=== PATIENT | male | born 1930 | race Caucasian/White ===

== ENCOUNTER → 2017-07-16 | Day surgery (SDC) | payer MEDICARE ==
--- NOTE | 2017-07-12 11:52 | MH ---
cc: Albert Rodrigez MD DATE OF ADMISSION: 07/16/2017 ADMISSION DIAGNOSIS: Cataract, left eye. HISTORY OF PRESENT ILLNESS: This 86-year-old white male is coming through [facility] for the purpose of a lens extraction of the left eye with intraocular lens implant under local anesthesia. He has noticed decreasing visual acuity interfering with his daily activities and elected to have the above procedure. His best corrected visual acuity in room light is 20/50+2 in the right eye and 20/70 -1 in the left. PAST MEDICAL HISTORY: The patient has a history of rheumatic fever, hypertension and cholesterol problems. PAST SURGICAL HISTORY: Includes appendectomy and hemorrhoidectomy, as well as a possible skin cancer removed from his right leg. DAILY MEDICATIONS: Include: CoQ10, atorvastatin, lisinopril, 81 mg of aspirin, multivitamins, calcium plus D, and the AREDS 2 vitamins for macular degeneration. ALLERGIES: HE STATES HE IS ALLERGIC "TO XARELTO" WHICH CAUSED INTERNAL BLEEDING. SOCIAL HISTORY: The patient does not smoke and has 1 alcoholic beverage a day. FAMILY HISTORY: Positive with a father who had retinitis pigmentosa and a cousin who has wet macular degeneration. REVIEW OF SYSTEMS: HEAD: Patient denies severe headaches, dizziness or recent head injury. EARS: Patient denies hearing loss, ear pain, discharge or ringing in the ears. NOSE: Patient denies nasal discharge, obstruction or frequent colds. MOUTH AND THROAT: Patient denies soreness of the mouth or tongue, bleeding gums, trouble swallowing, changes in voice or sore throat. NECK: Patient denies neck pain or swelling, limitation of neck movement or neck injury. CARDIOPULMONARY SYSTEM: Patient denies shortness of breath, orthopnea, chronic cough, sputum production, hemoptysis, chest pain, wheezing, palpitations or light-headedness. GI SYSTEM: Patient denies poor appetite, nausea, vomiting, abdominal pain, ulcers, hemorrhoids or change in bowel habits. SYSTEM: The patient denies urinary frequency, dysuria, change in urine color. NERVOUS SYSTEM: Patient denies convulsions, vertigo, stroke, numbness or weakness. PHYSICAL EXAMINATION: VITAL SIGNS: Blood pressure 128/76, pulse 48, respirations 20. HEENT: Head is normocephalic, atraumatic. Nose without rhinorrhea. Throat: Clear. NECK: Supple. CHEST: Clear. HEART: Regular rhythm. ABDOMEN: Without tenderness. EXTREMITIES: Without edema. NEUROLOGIC: Within normal limits. MENTAL STATUS: Within normal limits. EYE EXAM: Patient's best corrected visual acuity in room light is 20/50+2 in the right eye and 20/70 -1 in the left. Visual ceballos are full to confrontation testing. Extraocular muscle exam reveals full versions with orthophoria in the distance and exophoria at near. Pupils are 3 mm, equal, round, reactive to light, without afferent defect. Anterior segment examination reveals nuclear sclerotic anterior and posterior cortical cataract changes bilaterally. Intraocular pressure is 23 in the right eye and 21 in the left by applanation tonometry. Dilated fundus exam revealed sharp disks with cup-to-disk ratio of 0.4 bilaterally. There are retinal pigment epithelial changes in the macula of each eye. A posterior vitreous detachment is present bilaterally. Cobblestone peripheral retinal degeneration is noted inferiorly greater than superiorly in both eyes. A potential acuity meter reading revealed potential acuity of 20/25 -2 in the right eye and 20/30+2 in the left. IMPRESSION: 1. Bilateral cataracts. 2. Posterior vitreous detachment, both eyes. 3. Macular degeneration, both eyes. 4. Glaucoma suspect low risk, both eyes. PLAN: Lens extraction of the left eye with intraocular lens implant under local anesthesia through [facility]. The patient has been cleared medically. He has been counseled as to the risks, benefits and alternatives and elected to proceed. I feel that cataract surgery will improve the quality of life and activities of daily living in this patient. MD RADHA Bales/SAW , 07:50 AM , 08:19 AM
[~2017-07-16] VITALS: Ht 175.3 cm; Wt 86.5 kg
[~2017-07-16] MED LIST: ACETYLCHOLINE CHL OPHT SOLN 1:100 2 ML VIAL ONE; ALEN1TAB48 PO; ASCO500T PO; ASPI81TA81 PO; ATOR40TA16 PO; CALCTAB19 PO; CHLORHEXIDINE GLUCONATE 2 % 1 PACK (2 CLOTHS) TOPICAL PRN; EPINEPHrine HCL PF/SF (1:1000) 1 MG/ML AMP I-OCULAR ONE; HYALURONIDASE/LIDOCAINE/BUPIVACAINE 5 ML SYR LEFT EYE ONE; INSULIN HUMAN REGULAR 1,000 UNITS/10 ML VIAL SQ PRN; LACTATED RINGER'S 1000 ML IV PRN; LISI2.5T3 PO; LUTE20CA PO; METOPROLOL TARTRATE 25 MG TAB PO PRN; MULTTAB67 PO; PANT40TA3 PO; PILOCARPINE HCL 2% OPHT SOLN 15 ML BTL ONE; POVIDONE IODINE 5% (ANTISEPSIS KIT) 4 APPLICATIONS EACH NARE PRN; PROPARACAINE HCL 0.5% OPHT SOLN 15 ML BTL LEFT EYE ONE; PROPOFOL 200 MG/20 ML AMP ONE; SODIUM CHLORID 0.9% 500 ML IV PRN; TOBRAMYCIN/DEXAMETHASONE OPTH OINT 3.5 GM TUBE ONE; VISCOAT OPHT IRRIG SOLN 0.75 ML SYRINGE ONE; ZEAX5POW PO; acetaZOLAMIDE SEQUELS 500 MG SUSTAINED RELEASE CAP ONE
[2017-07-16] MEDS: DICLOFENAC SOD 0.1% OPHT SOLN 2.5 ML BTL LEFT EYE SCH ×4 (07:45→07:54)
[2017-07-16] MEDS: TROPICAMIDE 1% OPHT SOLN 15 ML BTL LEFT EYE SCH ×4 (07:45→07:54)
[2017-07-16] MEDS: PHENYLEPHRINE HCL 2.5% OPTH SOLN 2 ML BTL LEFT EYE SCH ×4 (07:45→07:54)
[2017-07-16] MEDS: GATIFLOXACIN 0.5% OPHT SOLN 2.5 ML BTL LEFT EYE SCH ×4 (07:45→07:54)
[2017-07-16] MEDS: CYCLOPENTOLATE HCL 1% OPHT SOLN 2 ML BTL LEFT EYE SCH ×4 (07:45→07:54)
[2017-07-16 07:46] VITALS: PULSE 82
[2017-07-16 08:42] VITALS: PULSE 74
[2017-07-16 10:12] VITALS: TEMP 98.4
[2017-07-16 10:40] VITALS: BP 137/66; PULSE 66; RESP 16; O2SAT 100
--- NOTE | 2017-07-16 11:21 | MP ---
cc: Albert Rodrigez MD DATE OF OPERATION: 07/16/2017 PREOPERATIVE DIAGNOSIS: Cataract left eye. POSTOPERATIVE DIAGNOSIS: Cataract left eye. OPERATION: Extracapsular cataract extraction with posterior chamber intraocular lens implant by phacoemulsification, left eye. SURGEON: Albert Rodrigez M.D. ANESTHESIA: Local. COMPLICATIONS: None. INDICATIONS: See history and physical previously dictated. OPERATIVE PROCEDURE: The patient had adequate retrobulbar and eyelid blocks administered in the holding area and was brought to the operating room. The left eye was prepped and draped in the usual sterile ophthalmic manner. A lid speculum was inserted in the left eye. A 4-0 silk bridle suture was placed through the conjunctiva near the superior rectus muscle and it was tagged to the drape. A fornix-based conjunctival flap was prepared spanning approximately 5 mm in width. Hemostasis was obtained with wet-field cautery. A 3.5 mm groove was made 1 mm from the limbus and dissected up to the limbus in the form of a scleral pocket incision. A stab incision was then made at the 2 o'clock position. Viscoelastic was injected into the anterior chamber. The anterior chamber was entered with a 2.75 mm keratome through the scleral pocket incision. A 360 degree continuous curvilinear capsulorrhexis was then performed. Hydrodissection was utilized to divide the nucleus into inner and outer components and to separate the cortex from the capsule. Phacoemulsification was then utilized to remove the nucleus. The outer nuclear layer was removed with irrigation and aspiration and short bursts of ultrasound as necessary. The cortex was removed with the irrigation/aspiration handpiece. The posterior capsule was polished with the capsule polisher. Viscoelastic was injected into the capsular bag. The intraocular lens was inspected and found to be in good condition. The lens utilized was a Doni, model number SA60AT with a power of +16 diopters. The lens was inserted into the capsular bag. The viscoelastic in the anterior chamber was then removed with the irrigation-aspiration handpiece. Viscoelastic was also removed from beneath the intraocular lens. The anterior chamber was filled with Miochol-E through the stab incision and pressurized. The wound was checked for leaks at this pressure and normalized pressure and there were none. The 4-0 bridle suture was removed. The conjunctival flap was brought down over the wound and secured with cautery. Pilocarpine 2% eye drops were instilled topically. The lid speculum was removed. TobraDex ophthalmic ointment was applied. The eye was double patched and shielded. The patient tolerated the procedure well and left the Operating Room in satisfactory condition. MD RADHA Bales/SEVEN , 10:44 AM , 11:19 AM
== END | disposition home or self-care (01) ==
LOC: PHSDC 06:46 → EDSTATUS 08:45
PROVIDERS: ATTEND Ophthalmology
DX: H26.9 Unspecified cataract (principal); H35.30 Unspecified macular degeneration; H43.813 Vitreous degeneration, bilateral; I10 Essential (primary) hypertension
CPT/HCPCS: 00142; 66984; J0171; V2632